=== PATIENT | female | born 1980 | race Caucasian/White ===

== ENCOUNTER 2017-04-10 17:17 | Emergency (ER) | payer BC ==
[~2017-04-10] VITALS: Ht 170.2 cm; Wt 77.1 kg
[2017-04-10 17:17] VITALS: BP 134/97; PULSE 116; RESP 18; TEMP 97.2; O2SAT 99
--- NOTE | 2017-04-10 17:17 | NUR ---
BROUGHT IN BY [facility] AND [facility]ACED IN BED #1, TRIAGED AND REPORT GIVEN TO KALA
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
--- NOTE | 2017-04-10 17:40 | NUR ---
ER at bedside examining patient.
--- NOTE | 2017-04-10 18:05 | NUR ---
c-spine cleared by Dr Rodriguez
--- NOTE | 2017-04-10 18:06 | NUR ---
Patient given written and verbal discharge instructions and verbalizes understanding. ER MD discussed with patient the results and treatment provided. Patient in stable condition. ID arm band removed. Rx of ibuprofen and flexeril given. Patient educated on pain management and to follow up with PMD. Pain Scale . Opportunity for questions provided and answered.
[2017-04-10 18:07] VITALS: BP 134/97; PULSE 116; RESP 18; TEMP 97.2; O2SAT 99
== END 2017-04-10 18:07 | disposition home or self-care (01) ==
LOC: SED 17:17
DX: S39.012A Strain of muscle, fascia and tendon of lower back, initial encounter (principal); V23.4XXA Motorcycle driver injured in collision with car, pick-up truck or van in traffic accident, initial encounter; Y93.89 Activity, other specified; Y92.89 Other specified places as the place of occurrence of the external cause; Y99.8 Other external cause status
CPT/HCPCS: 99283